=== PATIENT | male | born 1930 | race Two or more races ===

== ENCOUNTER 2018-09-10 13:23 | Inpatient (IN) | payer MEDICARE ==
[~2018-09-10] VITALS: Ht 180.3 cm; Wt 81.6 kg
[2018-09-10] MEDS ORDERED: SODIUM CHLORIDE 0.9% 500ML 500 ML IV ONE (14:30)
--- NOTE | 2018-09-10 14:31 | NUR ---
Pt placed on a waffle on arrival to room.
[2018-09-10 15:15] LABS: BASOPHILS % 0.1 % (0.0-1.0); EOSINOPHILS % 0.1 % (0.0-6.0); HEMATOCRIT 35.4 % (38.2-49.6); HEMOGLOBIN 10.6 g/dL (14.0-18.0); LYMPHOCYTES # (AUTO) 0.6 (1.0-3.2); LYMPHOCYTES % 3.6 % (18.0-39.1); MEAN CORPUSCULAR HEMOGLOBIN 26.4 pg (28-32); MEAN CORPUSCULAR HGB CONC 29.9 g/dL (31-35); MEAN CORPUSCULAR VOLUME 88.3 fL (81-99); MONOCYTES # (AUTO) 0.6 (0.2-0.8); MONOCYTES % 3.6 % (4.4-11.3); NEUTROPHILS # (AUTO) 14.3 (2.1-6.9); NEUTROPHILS % 92.1 % (38.7-80.0); PLATELET COUNT 217 x10e3/uL (140-360); RED BLOOD COUNT 4.01 x10e6/uL (4.3-5.7); RED CELL DISTRIBUTION WIDTH 17.1 % (11.7-14.4)
[2018-09-10 15:24] LABS: INR 0.92; PROTHROMBIN TIME 12.9 seconds (11.9-14.5)
[2018-09-10 15:25] LABS: PARTIAL THROMBOPLASTIN TIME 33.2 seconds (23.8-35.5)
--- NOTE | 2018-09-10 15:30 | NUR ---
ERICKA FROM THE LAB CALLED TO REPORT LACTIC ACID 23. INFORMED DR. VERA AND BROOKE RN PRIMARY NURSE OF THIS.
[2018-09-10 15:32] LABS: ALBUMIN 2.9 g/dL (3.5-5.0); ALBUMIN/GLOBULIN RATIO 0.9 (0.8-2.0); CALCIUM 10.2 mg/dL (8.4-10.2); CREATININE, SERUM 1.91 mg/dL (0.72-1.25)
[2018-09-10 15:38] LABS: CREATINE KINASE MB 1.5 ng/mL (0-5.0)
--- NOTE | 2018-09-10 15:53 | Diagnostic Imaging Report ---
CT BRAIN WO HISTORY: Fall COMPARISON: None. Technique: Noncontrast axial scans were obtained from skull base to the vertex. Coronal and sagittal reconstructions obtained from the axial data. One or more of the following dose reduction techniques were used: Automated exposure control, adjustment of the mA and/or kV according to patient size, and/or utilization of iterative reconstruction technique. DISCUSSION: Scalp/Skull: Unremarkable. Brain sulci: Prominent Ventricles: Compensatory dilatation. Extra-axial spaces: No masses or fluid collections. Carotid siphon and vertebral artery calcifications are present. Parenchyma: Severe bilateral deep white matter hypodensity is likely chronic microvascular ischemic change. Otherwise, no masses, hemorrhage, or large vascular territory acute infarct. Dural sinuses: No abnormal densities. Sellar/Suprasellar region: Intact. Skull base: Intact. Incidental findings: Both ocular lenses are thinned. IMPRESSION: 1. No acute intracranial abnormalities. 2. Severe supratentorial chronic microvascular ischemic change. Generalized cerebral volume loss. Signed by: Dr. Marko Saucedo M.D. on 09/10/2018 3:49 PM
--- NOTE | 2018-09-10 15:57 | Diagnostic Imaging Report ---
CT CERVICAL SPINE WO HISTORY: Fall COMPARISON: Concurrent head CT TECHNIQUE: CT of the cervical spine without contrast. Sagittal and coronal reformations were created. One or more of the following dose reduction techniques were used: Automated exposure control, adjustment of the mA and/or kV according to patient size, and/or utilization of iterative reconstruction technique. FINDINGS: Bone demineralization limits osseous evaluation. Cervical lordosis is straightened. There is no scoliosis. No definite acute fracture or compression deformity is seen. The craniocervical junction is intact. No gross spinal canal masses are seen. The paravertebral and paraspinal soft tissues are unremarkable. Advanced multilevel spondylotic changes are present. Associated multilevel bilateral facet arthrosis is present. There is grade 1 anterolisthesis of C4 on C5 and C7 on T1. Advanced atlantoaxial arthrosis is present as well. Mild right and moderate left carotid bulb calcification is present. IMPRESSION: 1. No acute osseous abnormalities. 2. Advanced multilevel spondylosis. Signed by: Dr. Marko Saucedo M.D. on 09/10/2018 3:54 PM
--- NOTE | 2018-09-10 16:44 | Diagnostic Imaging Report ---
Bilateral elbow - 3 view(s) each HISTORY: Pain. Fall COMPARISON: None available. FINDINGS: RIGHT: No displaced fracture. The osseous alignment is within normal limits. The joint spaces are well-maintained. The soft tissues appear unremarkable. LEFT: No displaced fracture. The osseous alignment is within normal limits. Severe degenerative changes in the left elbow. The soft tissues appear unremarkable. IMPRESSION: 1. Unremarkable right elbow. 2. Severe degenerative changes in the left elbow. Left radial head is partially obscured secondary to the degenerative changes. Signed by: Dr. Michael Vera M.D. on 09/10/2018 4:40 PM
--- NOTE | 2018-09-10 16:48 | Diagnostic Imaging Report ---
Bilateral wrists - 3 view(s) each HISTORY: Pain. Fall. COMPARISON: None available. FINDINGS: RIGHT: No displaced fracture. The osseous alignment is within normal limits. Severe degenerative changes in the first carpometacarpal joint. Mild degenerative changes in the radial carpal joint. The soft tissues appear unremarkable. Periarticular lucencies especially around the carpal bones and MCP joints. LEFT: No displaced fracture. The osseous alignment is within normal limits. Severe degenerative changes in the first carpometacarpal joint. Mild degenerative changes in the radial carpal joint. The soft tissues appear unremarkable. Periarticular lucencies especially around the carpal bones and MCP joints. IMPRESSION: 1. Severe degenerative changes in the first carpometacarpal joints bilaterally. 2. Periarticular lucency, concerning for inflammatory arthritis such as rheumatoid arthritis. Signed by: Dr. Michael Vera M.D. on 09/10/2018 4:44 PM
[2018-09-10 17:22] LABS: CLARITY,URINE SL CLOUDY (CLEAR); COLOR,URINE YELLOW (YELLOW); KETONES,URINE NEGATIVE (NEGATIVE); LEUKOCYTE ESTERASE ,URINE TRACE (NEGATIVE); NITRITE,URINE NEGATIVE (NEGATIVE); PROTEIN,URINE DIPSTICK NEGATIVE (NEGATIVE); URINE UROBILINOGEN 0.2 mg/dL (0.2 - 1)
[2018-09-10 17:23] LABS: BILIRUBIN,URINE NEGATIVE (NEGATIVE)
[2018-09-10 17:34] LABS: AMORPHOUS SEDIMENT,URINE FEW (FEW); EPITHELIAL CELLS,URINE FEW /LPF; WBC,URINE (MAN) 0-5 /HPF (0-5)
[2018-09-10] MEDS ORDERED: INSULIN REGULAR, HUMAN 100 UNIT/1 ML 3ML VIAL IV ONE (18:45)
--- NOTE | 2018-09-10 19:07 | Diagnostic Imaging Report ---
Examination: Single AP view of the chest. COMPARISON: None. INDICATION: Status post fall IMPRESSION: 1. Lines and Tubes: None 2. Lungs are well-inflated. Ill-defined air space opacity in the right upper lung, which may represent contusion in the setting of trauma, or aspiration, however, a pulmonary mass and associated atelectasis are also considered, given the tracheal deviation towards the right. Contrast-enhanced CT chest is recommended for further evaluation. 3. Cardiac silhouette is unremarkable. Pulmonary vasculature is normal. 4. No acute bony abnormalities. No acute fractures are noted in this limited single view. Signed by: Dr. Kaleb Herrmann M.D. on 09/10/2018 7:04 PM
--- NOTE | 2018-09-10 19:18 | NUR ---
Report and care hand off given to MALIA Tomlin. Walking rounds completed. Pt lying in stretcher on waffle.
--- NOTE | 2018-09-10 19:20 | Diagnostic Imaging Report ---
EXAMINATION: Pelvis and bilateral hips CLINICAL HISTORY:Status post fall COMPARISON: None. DISCUSSION: Decreased demineralization, which limits evaluation of the bony structures. No acute, displaced fractures or dislocations. Mild degenerative changes in bilateral hips and sacral joints. No gross soft tissue abnormalities. No osteolytic lesions. 1.1 cm oval-shaped density projecting in the left iliac bone likely represents a calcified injection granuloma in the gluteal region. Vascular calcifications. Nonaggressive appearing 1.6 cm sclerotic lesion in the proximal left femur likely represents a bone island. IMPRESSION: 1. No acute, displaced fracture or dislocation. Signed by: Dr. Kaleb Herrmann M.D. on 09/10/2018 7:16 PM
--- NOTE | 2018-09-10 19:22 | Diagnostic Imaging Report ---
EXAMINATION: Bilateral shoulder series. CLINICAL HISTORY: Status post fall, shoulder pain, arm pain. COMPARISON: None. . Discussion: Left: The osseous structures are intact without evidence of acute, displaced fracture or dislocation. No aggressive lytic lesions. There is no evidence of a.c. separation. Mild degenerative changes in the acromioclavicular and glenohumeral joints. Mild cystic degenerative changes at the greater tuberosity. The soft tissues are normal. Visualized portions of the left ribs are intact. Right:The osseous structures are intact without evidence of acute, displaced fracture or dislocation. No osteolytic or osteoblastic lesions. There is no evidence of a.c. separation. Mild degenerative changes in the acromion clavicular and glenohumeral joints. The soft tissues are normal. Visualized portions of the right ribs are intact. IMPRESSION: 1. No acute, displaced fracture or dislocation. Signed by: Dr. Kaleb Herrmann M.D. on 09/10/2018 7:19 PM
[2018-09-10] MEDS ORDERED: SODIUM CHLORIDE 0.9% 1000ML 1,000 ML IV ONE ×2 (19:45→22:15)
[2018-09-10] MEDS ORDERED: AZITHROMYCIN 500MG/NS 250 ML 250 ML IV SCH (19:45)
[2018-09-10] MEDS ORDERED: CEFTRIAXONE SOD 1 GM/NS 50 ML 50 ML IV ONE (19:45)
[2018-09-10] MEDS ORDERED: SENNA LAX8.6 MG PO (21:01)
[2018-09-10] MEDS ORDERED: POTASSIUM CHLO10 ME1 PO (21:01)
[2018-09-10] MEDS ORDERED: LEVAQUIN500 MG PO (21:01)
[2018-09-10] MEDS ORDERED: MORPHINE SULFAT30 M2 PO (21:01)
[2018-09-10] MEDS ORDERED: NEXIUM40 MG PO (21:01)
[2018-09-10] MEDS ORDERED: SERTRALINE HCL100 MG PO (21:01)
[2018-09-10] MEDS ORDERED: DEXAMETHASONE4 MG PO (21:01)
[2018-09-10] MEDS ORDERED: FLOMAX0.4 MG PO (21:01)
[2018-09-10] MEDS ORDERED: FUROSEMIDE40 MG PO (21:01)
[2018-09-10] MEDS ORDERED: CLOPIDOGREL75 MG PO (21:01)
[2018-09-10] MEDS ORDERED: ENALAPRIL MALE2.5 MG PO (21:01)
--- NOTE | 2018-09-10 21:44 | Diagnostic Imaging Report ---
EXAM: CT Chest WITHOUT contrast 09/10/2018 7:36 PM INDICATION: Right upper lobe abnormality. COMPARISON: None TECHNIQUE: Chest was scanned utilizing a multidetector helical scanner from the lung apex through the level of the adrenal glands without administration of IV contrast. Absence of intravenous contrast decreases sensitivity for detection of lymphadenopathy and vascular pathology. Coronal and sagittal reformations were obtained. Routine protocol was performed. IV CONTRAST: None RADIATION DOSE: Total DLP: 587.62 mGy*cm Estimated effective dose: (DLP x 0.014 x size factor) mSv COMPLICATIONS: None FINDINGS: LINES/ TUBES: None. LUNGS AND AIRWAYS: Large consolidation/mass in the right upper lobe with central fluid attenuation, likely necrosis. It measures approximately 6.3 x 5.6 cm on coronal image 54. Diffuse coarsening of the pulmonary interstitium. PLEURA: The pleural spaces are clear. HEART AND MEDIASTINUM: The thyroid gland is normal. The heart is normal in size.. There are multiple significantly enlarged lymph nodes in the right mediastinum, the largest lymph node mass estimated at 3.8 x 4.4 cm on coronal image 54 mild coronary artery calcifications.. There is no pericardial effusion. UPPER ABDOMEN: Limited non-contrast views of the upper abdomen show status post cholecystectomy. Mild common bile duct dilatation.. The adrenal glands are normal. 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 4.4 x 4.1 cm cyst exophytic of the lateral upper pole of the left kidney, partially visualized. BONES: There are degenerative changes in the thoracic spine. Remote left-sided rib fractures. SOFT TISSUES: Battery pack in the soft tissues of the posterior left back. IMPRESSION: 1. Large consolidation/mass with central necrosis in the right upper lobe measuring up to 6.3 cm in maximal dimension, associated with extensive right sided lymphadenopathy concerning for malignant neoplasm. Recommend pulmonary consultation. Signed by: Dr. Marie Scott M.D. on 09/10/2018 9:40 PM
[2018-09-10] MEDS ORDERED: ONDANSETRON HCL INJ 2MG/ML 2ML 2 MG/ML VIAL IV PRN (22:30)
[2018-09-10] MEDS ORDERED: ACETAMINOPHEN 1000 MG/100 ML IV PRN (22:30)
[2018-09-10] MEDS: ALBUTEROL SULF 0.083% NEB SOLN 3 ML NEB NEB SCH ×2 (22:30→23:00)
[2018-09-10] MEDS: MORPHINE SULFATE 30 MG TAB ER PO SCH (23:31)
--- OUTSIDE RECORDS SUMMARY | 2018-09-10 23:34 | XMS REPORT ---
Author Author [facility] Address Unknown Phone Unavailable Care Team Providers Care Agile Java Developer Name Role Phone Margi VERA Unavailable Unavailable Problems This patient has no known problems. Allergies, Adverse Reactions, Alerts This patient has no known allergies or adverse reactions. Medications This patient has no known medications. Results Test Description Test Time Test Comments Text Results Atomic Results Result Comments CT CHEST WO 2018-09-10 21:26:00 [place] [address] Patient Name: MANUEL GOODSON MR #: [id number] : 1930 Age/Sex: 88/M Req #: [id number] Adm Physician: Ordered by: ANGELIC SAMUEL MD Report #: [id number] Location: ER Room/Bed: Procedure: [id number] CT/CT CHEST WO Exam Date: 09/10/18 Exam Time: 2046 REPORT STATUS: Signed EXAM: CT Chest WITHOUT contrast 09/10/2018 7:36 PM INDICATION: Right upper lobe abnormality. COMPARISON: None TECHNIQUE: Chest was scanned utilizing a multidetector helical scanner from the lung apex through the level of the adrenal glands without administration of IV contrast. Absence of intravenous contrast decreases sensitivity for detection of lymphadenopathy and vascular pathology. Coronal and sagittal reformations were obtained. Routine protocol was performed. IV CONTRAST: None RADIATION DOSE: Total DLP: 587.62 mGy*cm Estimated effective dose: (DLP x 0.014 x size factor) mSv COMPLICATIONS: None FINDINGS: LINES/ TUBES: None. LUNGS AND AIRWAYS: Large consolidation/mass in the right upper lobe with central fluid attenuation, likely necrosis. It measures approximately 6.3 x 5.6 cm on coronal image 54. Diffuse coarsening of the pulmonary interstitium. PLEURA: The pleural spaces are clear. HEART AND MEDIASTINUM: The thyroid gland is normal. The heart is normal in size.. There are multiple significantly enlarged lymph nodes in the right mediastinum, the largest lymph node mass estimated at 3.8 x 4.4 cm on coronal image 54 mild coronary artery calcifications.. There is no pericardial effusion. UPPER ABDOMEN: Limited non-contrast views of the upper abdomen show status post cholecystectomy. Mild common bile duct dilatation.. The adrenal glands are normal. 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 4.4 x 4.1 cm cyst exophytic of the lateral upper pole of the left kidney, partially visualized. BONES: There are degenerative changes in the thoracic spine. Remote left-sided rib fractures. SOFT TISSUES: Battery pack in the soft tissues of the posterior left back. IMPRESSION: 1. Large consolidation/mass with central necrosis in the right upper lobe measuring up to 6.3 cm in maximal dimension, associated with extensive right sided lymphadenopathy concerning for malignant neoplasm. Recommend pulmonary consultation. Signed by: Dr. Marie Caban M.D. on 09/10/2018 9:40 PM Dictated By: JESUS CABAN MD, MD 39 Transcribed By: NOAH on 09/10/182139 COPY TO: ANGELIC SAMUEL MD [facility] BILATERAL 2018-09-10 19:17:00 [place] [address] Patient Name: MANUEL GOODSON MR #: [id number] : 1930 Age/Sex: 88/M Req #: [id number] Adm Physician: Ordered by: JORDYN CASTILLO FLUMER Report #: [id number] Location: Room/Bed: Procedure: [id number] DX/HUMERUS BILATERAL Exam Date: 09/10/18 Exam Time: 1500 REPORT STATUS: Signed EXAMINATION: Bilateral shoulder series. CLINICAL HISTORY: Status post fall, shoulder pain, arm pain. COMPARISON: None. . Discussion: Left: The osseous structures are intact without evidence of acute, displaced fracture or dislocation. No aggressive lytic lesions. There is no evidence of a.c. separation. Mild degenerative changes in the acromioclavicular and glenohumeral joints. Mild cystic degenerative changes at the greater tuberosity. The soft tissues are normal. Visualized portions of the left ribs are intact. Right:The osseous structures are intact without evidence of acute, displaced fracture or dislocation. No osteolytic or osteoblastic lesions. There is no evidence of a.c. separation. Mild degenerative changes in the acromion clavicular and glenohumeral joints. The soft tissues are normal. Visualized portions of the right ribs are intact. IMPRESSION: 1. No acute, displaced fracture or dislocation. Signed by: Dr. Darwin Herrmann M.D. on 09/10/2018 7:19 PM Dictated By: DARWIN HERRMANN MD 18 Transcribed By: NOAH on 09/10/181918 COPY TO: JORDYN CASTILLO FLUMER HIPS BILAT 3-4VWS (+/- PELVIS) 2018-09-10 19:04:00 [place] [address] Patient Name: MANUEL GOODSON MR #: [id number] : 1930 Age/Sex: 88/M Req #: [id number] Adm Physician: Ordered by: JORDYN CASTILLO FLUMER Report #: [id number] Location: ER Room/Bed: Procedure: [id number] DX/HIPS BILAT 3-4VWS (+/- PELVIS) Exam Date: Exam Time: REPORT STATUS: Signed EXAMINATION: Pelvis and bilateral hips CLINICAL HISTORY:Status post fall COMPARISON: None. DISCUSSION: Decreased demineralization, which limits evaluation of the bony structures. No acute, displaced fractures or dislocations. Mild degenerative changes in bilateral hips and sacral joints. No gross soft tissue abnormalities. No osteolytic lesions. 1.1 cm oval-shaped density projecting in the left iliac bone likely represents a calcified injection granuloma in the gluteal region. Vascular calcifications. Nonaggressive appearing 1.6 cm sclerotic lesion in the proximal left femur likely represents a bone island. IMPRESSION: 1. No acute, displaced fracture or dislocation. Signed by: Dr. Darwin Herrmann M.D. on 09/10/2018 7:16 PM Dictated By: DARWIN HERRMANN MD 15 Transcribed By: NOAH on 09/10/181915 COPY TO: JORDYN CASTILLO FLUMER CHEST SINGLE (NOT PORTABLE) 2018-09-10 18:59:00 [place] [address] Patient Name: MANUEL GOODSON MR #: [id number] : 1930 Age/Sex: 88/M Req #: [id number] Adm Physician: Ordered by: JORDYN CASTILLO FLUMER Report #: [id number] Location: ER Room/Bed: Procedure: [id number] DX/CHEST SINGLE (NOT PORTABLE) Exam Date: 09/10/18 Exam Time: 1500 REPORT STATUS: Signed Examination: Single AP view of the chest. COMPARISON: None. INDICATION: Status post fall IMPRESSION: 1. Lines and Tubes: None 2. Lungs are well-inflated. Ill-defined air space opacity in the right upper lung, which may represent contusion in the setting of trauma, or aspiration, however, a pulmonary mass and associated atelectasis are also considered, given the tracheal deviation towards the right. Contrast- enhanced CT chest is recommended for further evaluation. 3. Cardiac silhouette is unremarkable. Pulmonary vasculature is normal. 4. No acute bony abnormalities. No acute fractures are noted in this limited single view. Signed by: Dr. Darwin Herrmann M.D. on 09/10/2018 7:04 PM Dictated By: DARWIN HERRMANN MD 03 Transcribed By: NOAH on 09/10/181903 COPY TO: JORDYN CASTILLO FLUMER WRIST COMPLETE BILATERAL 2018-09-10 16:40:00 [place] [address] Patient Name: MANUEL GOODSON MR #: [id number] : 1930 Age/Sex: 88/M Req #: [id number] Adm Physician: Ordered by: JORDYN CASTILLO FLUMER Report #: [id number] Location: ER Room/Bed: Procedure: [id number] DX/WRIST COMPLETE BILATERAL Exam Date: 09/10/18 Exam Time: 1500 REPORT STATUS: Signed Bilateral wrists - 3 view(s) each HISTORY: Pain. Fall. COMPARISON: None available. FINDINGS: RIGHT: No displaced fracture. The osseous alignment is within normal limits. Severe degenerative changes in the first carpometacarpal joint. Mild degenerative changes in the radial carpal joint. The soft tissues appear unremarkable. Periarticular lucencies especially around the carpal bones and MCP joints. LEFT: No displaced fracture. The osseous alignment is within normal limits. Severe degenerative changes in the first carpometacarpal joint. Mild degenerative changes in the radial carpal joint. The soft tissues appear unremarkable. Periarticular lucencies especially around the carpal bones and MCP joints. IMPRESSION: 1. Severe degenerative changes in the first carpometacarpal joints bilaterally. 2. Periarticular lucency, concerning for inflammatory arthritis such as rheumatoid arthritis. Signed by: Dr. Donato Nichole M.D. on 09/10/2018 4:44 PM Dictated By: DONATO NICHOLE MD 43 Transcribed By: NOAH on 09/10/181643 COPY TO: JORDYN CASTILLO NP ELBOW THREE VIEWS BILATERAL 2018-09-10 16:26:00 [place] [address] Patient Name: MANUEL GOODSON MR #: [id number] : 1930 Age/Sex: 88/M Req #: [id number] Adm Physician: Ordered by: JORDYN CASTILLO NP Report #: [id number] Location: ER Room/Bed: Procedure: [id number] DX/ELBOW THREE VIEWS BILATERAL Exam Date: 09/10/18 Exam Time: 1500 REPORT STATUS: Signed Bilateral elbow - 3 view(s) each HISTORY: Pain. Fall COMPARISON: None available. FINDINGS: RIGHT: No displaced fracture. The osseous alignment is within normal limits. The joint spaces are well-maintained. The soft tissues appear unremarkable. LEFT: No displaced fracture. The osseous alignment is within normal limits. Severe degenerative changes in the left elbow. The soft tissues appear unremarkable. IMPRESSION: 1. Unremarkable right elbow. 2. Severe degenerative changes in the left elbow. Left radial head is partially obscured secondary to the degenerative changes. Signed by: Dr. Donato Nichole M.D. on 09/10/2018 4:40 PM Dictated By: DONATO NICHOLE MD 1640 Transcribed By: NOAH on 09/10/18 1640 COPY TO: JORDYN CASTILLO NP CT CERVICAL SPINE WO 2018-09-10 15:50:00 [place] [address] Patient Name: MANUEL GOODSON MR #: [id number] : 1930 Age/Sex: 88/M Req #: [id number] Adm Physician: Ordered by: JORDYN CASTILLO FLUMER Report #: [id number] Location: ER Room/Bed: Procedure: [id number] CT/CT CERVICAL SPINE WO Exam Date: Exam Time: REPORT STATUS: Signed CT CERVICAL SPINE WO HISTORY: Fall COMPARISON: Concurrent head CT TECHNIQUE: CT of the cervical spine without contrast. Sagittal and coronal reformations were created. One or more of the following dose reduction techniques were used: Automated exposure control, adjustment of the mA and/or kV according to patient size, and/or utilization of iterative reconstruction technique. FINDINGS: Bone demineralization limits osseous evaluation. Cervical lordosis is straightened. There is no scoliosis. No definite acute fracture or compression deformity is seen. The craniocervical junction is intact. No gross spinal canal masses are seen. The paravertebral and paraspinal soft tissues are unremarkable. Advanced multilevel spondylotic changes are present. Associated multilevel bilateral facet arthrosis is present. There is grade 1 anterolisthesis of C4 on C5 and C7 on T1. Advanced atlantoaxial arthrosis is present as well. Mild right and moderate left carotid bulb calcification is present. IMPRESSION: 1. No acute osseous abnormalities. 2. Advanced multilevel spondylosis. Signed by: Dr. Marko Saucedo M.D. on 09/10/2018 3:54 PM Dictated By: MARKO SAUCEDO MD 1557 Transcribed By: NOAH on 09/10/18 7756 COPY TO: JORDYN CASTILLO NP CT BRAIN WO 2018-09-10 15:47:00 [place] [address] Patient Name: MANUEL GOODSON MR #: [id number] : 1930 Age/Sex: 88/M Req #: [id number] Adm Physician: Ordered by: JORDYN CASTILLO FLUMER Report #: [id number] Location: ER Room/Bed: Procedure: [id number] CT/CT BRAIN WO Exam Date: Exam Time: REPORT STATUS: Signed CT BRAIN WO HISTORY: Fall COMPARISON: None. Technique: Noncontrast axial scans were obtained from skull base to the vertex. Coronal and sagittal reconstructions obtained from the axial data. One or more of the following dose reduction techniques were used: Automated exposure control, adjustment of the mA and/or kV according to patient size, and/or utilization of iterative reconstruction technique. DISCUSSION: Scalp/Skull: Unrema rkable. Brain sulci: Prominent Ventricles: Compensatory dilatation. Extra- axial spaces: No masses or fluid collections. Carotid siphon and vertebral artery calcifications are present. Parenchyma: Severe bilateral deep white matter hypodensity is likely chronic microvascular ischemic change. Otherwise, no masses, hemorrhage, or large vascular territory acute infarct. Dural sinuses: No abnormal densities. Sellar/Suprasellar region: Intact. Skull base: Intact. Incidental findings: Both ocular lenses are thinned. IMPRESSION: 1. No acute intracranial abnormalities. 2. Severe supratentorial chronic microvascular ischemic change. Generalized cerebral volume loss. Signed by: Dr. Marko Sauceod M.D. on 09/10/2018 3:49 PM Dictated By: MARKO SAUCEDO MD 1549 Transcribed By: NOAH on 09/10/18 1541 COPY TO: JORDYN CASTILLO NP
[2018-09-10] MEDS: VANCOMYCIN 500MG/NS 0.9% 100ML 100 ML IV SCH (23:35)
[2018-09-11] MEDS: SODIUM CHLORIDE 0.9% 1000ML 1,000 ML IV SCH ×3 (00:05→08:51)
[2018-09-11] MEDS: ALBUTEROL SULF 0.083% NEB SOLN 3 ML NEB NEB SCH ×7 (02:57→23:00)
[2018-09-11 05:20] LABS: BASOPHILS % 0.2 % (0.0-1.0); EOSINOPHILS # (AUTO) 0.2 (0.0-0.4); EOSINOPHILS % 1.2 % (0.0-6.0); HEMATOCRIT 33.2 % (38.2-49.6); HEMOGLOBIN 9.7 g/dL (14.0-18.0); LYMPHOCYTES # (AUTO) 1.6 (1.0-3.2); LYMPHOCYTES % 10.4 % (18.0-39.1); MEAN CORPUSCULAR HEMOGLOBIN 26.1 pg (28-32); MEAN CORPUSCULAR HGB CONC 29.2 g/dL (31-35); MEAN CORPUSCULAR VOLUME 89.2 fL (81-99); MONOCYTES # (AUTO) 0.7 (0.2-0.8); MONOCYTES % 4.7 % (4.4-11.3); NEUTROPHILS # (AUTO) 12.6 (2.1-6.9); NEUTROPHILS % 82.9 % (38.7-80.0); PLATELET COUNT 215 x10e3/uL (140-360); RED BLOOD COUNT 3.72 x10e6/uL (4.3-5.7); RED CELL DISTRIBUTION WIDTH 17.2 % (11.7-14.4)
[2018-09-11 05:39] LABS: ALBUMIN 2.6 g/dL (3.5-5.0); ALBUMIN/GLOBULIN RATIO 0.8 (0.8-2.0); ANION GAP 14.7 mmol/L (8-16); CREATININE, SERUM 1.36 mg/dL (0.72-1.25); POTASSIUM 3.7 mmol/L (3.5-5.1)
[2018-09-11 06:01] LABS: CALCIUM 8.5 mg/dL (8.4-10.2)
[2018-09-11 06:38] LABS: CREATINE KINASE MB 1.3 ng/mL (0-5.0)
[2018-09-11] MEDS: IPRATROPIUM BROMIDE 0.02% 2.5 ML NEB NEB SCH ×5 (07:00→20:30)
--- NOTE | 2018-09-11 07:10 | NUR ---
walking rounds with erin martinez
--- NOTE | 2018-09-11 08:30 | NUR ---
Patient did not want to eat breakfast at this time.
[2018-09-11] MEDS: POTASSIUM CHLORIDE 10MEQ EA PO SCH (08:49)
[2018-09-11] MEDS: FUROSEMIDE 40 MG TAB PO SCH ×2 (08:49→19:18)
[2018-09-11] MEDS: DEXAMETHASONE 4 MG TAB PO SCH (08:49)
[2018-09-11] MEDS: TAMSULOSIN HCL 0.4 MG CAP PO SCH (08:49)
[2018-09-11] MEDS: MORPHINE SULFATE 30 MG TAB ER PO SCH ×2 (08:49→21:49)
[2018-09-11] MEDS: CLOPIDOGREL BISULFATE 75 MG TAB PO SCH (08:49)
[2018-09-11] MEDS: PANTOPRAZOLE SOD 40 MG TABEC PO SCH (08:49)
--- NOTE | 2018-09-11 09:00 | NUR ---
Spoke to DANIEL Clinton and informed patient has cigna. Stated to change attending physician at this time.
--- NOTE | 2018-09-11 09:01 | NUR ---
Dr. 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
--- NOTE | 2018-09-11 09:01 | NUR ---
Attempted to speak to Dr. Dhaliwal at this time with no answer. Awaiting call back.
[2018-09-11] MEDS ORDERED: METOPROLOL TARTRATE 25 MG TAB ONE (09:06)
[2018-09-11] MEDS ORDERED: METOPROLOL TARTRATE 25 MG TAB PO ONE (09:30)
--- NOTE | 2018-09-11 09:30 | NUR ---
Spoke to Dr. Dhaliwal. He was made aware patient has had approx 6-7 runs of SVT and is self converting. New orders obtained. Addendum: 09/11/18 at 1011 by TERRENCE MALIA Fleming spoke to Dr. Dhaliwal.
[2018-09-11] MEDS: VANCOMYCIN 500MG/NS 0.9% 100ML 100 ML IV SCH (09:41)
--- NOTE | 2018-09-11 11:00 | NUR ---
New brief applied. New linens applied as well. Patient repositioned for comfort as well. Walking rounds with Janee Weller RN.
--- NOTE | 2018-09-11 11:15 | NUR ---
WOUND CARE CONSULTATION - INITIAL EVALUATION Patient admitted from [place] to ER for S/P fall and increased confusion. DX: S/p Fall, Lung Ca, PNA, Septic Shock, KERA. LABS: WBC15.35 HGB9.7 HCT33.2 NEUT%82.9 GLU95 ALB2.6 -WC Consulted for Multiple Abrasions from Fall. PATIENT VISIT: -Patient confused in bed in ERHOLD#9. -Scott Score 12 -Incontinent of Bowel - frequent soft stools. -Diapered -No pressure ulcers identified - Presents with skin tear to forehead, left arm x 2 sites. areas with steri strips in place. stable. No redness. no swelling noted. IMPRESSION Forehead - Skin Tear- stable with Steri-Strips Left Forearm - Skin tear- Stable with Steri-Strips in place. RECOMMENDATION: 1. Skin Tear Precautions 2. Shear Friction Precautions. 3. Alternating Pressure Air Mattress. 4. Bilateral Heels - Allevyn Heel Foam Dressings every other day. 5. Ngozi-rectal area - Calazime Cream BID and PRN Soiling. 6. Turn and Reposition every 2 hours. 7. Encourage OOB activity. Addendum: 09/11/18 at 1128 by Omero Portillo RN Amended: Links added.
--- NOTE | 2018-09-11 11:27 | NUR ---
report from MALIA Trejo; patient lying in bed AOx2; patient cleaned of another BM
[2018-09-11] MEDS ORDERED: CEFEPIME 1GM/NS 0.9% 50 ML 50 ML IV SCH (14:00)
[2018-09-11] MEDS ORDERED: SODIUM CHLORIDE 0.45% 1,000 ML IV ONE (14:15)
[2018-09-11 14:23] LABS: CREATINE KINASE MB 1.3 ng/mL (0-5.0)
--- NOTE | 2018-09-11 17:40 | NUR ---
CASE MANAGEMENT INITIAL ASSESSMENT Development Specialist to bedside to discuss plan of care with patient/family. CM/SW role and care transitions discussed. Anticipated discharge plan discussed along with duration of care. CM/SW discussed patients right to make decisions in care. CM/SW work hours given. Patient lives: [facility] Admit/Transfer: ER Hospital/ER visits since last admit:UNKNOWN POA/Emergency contact: NANCY ALANIZ [phone] Current/Previous Home Health: NO PCP/Follow-up Care: UNKNOWN Current/Previous DME: NONE Medications (referring to index hospitalization or the first time you were in the hospital) a. Were changes made in your medications when you were in the hospital on [date of index hospitalization]? Yes No Not sure Explain: Note: If no or not sure, please skip to question d b. Did you understand the changes? Yes No Explain: c. Were you able to obtain your new medications right away? Yes No n/a SNF only Explain: d. Were you able to take your medications like the doctor wanted you to? Yes No Explain: e. Did the hospital give you an accurate, easy to understand list of medications when you left? Yes No n/a SNF only Explain: Scale of 1-10 how comfortable does patient feel with disease management in outpatient setting: Other Services: Employment Status: RETIRED Areas of Concerns: UNKNOWN Referral Needs: UNKNOWN Education Needs: PT CONFUSED; ATTEMPTED TO CALL NEIGHBOR BUT NO ANSWER IMM/MIRANDA given and signed (if applicable): UNABLE TO SIGN Goal for discharge:UNKNOWN CM/SW left business card at the bedside with contact information. Name and number was also written on the patients whiteboard. Patient verbalized understanding of discussion. CM will follow-up with ongoing discharge and transition of care needs.
[2018-09-11] MEDS ORDERED: SODIUM CHLORIDE 0.45% 1,000 ML ONE (19:16)
[2018-09-11 19:36] VITALS: BP 110/81
--- NOTE | 2018-09-11 19:36 | Consultation ---
DATE OF CONSULTATION: 09/11/2018 Cardiology Consultation REASON FOR CONSULTATION: Supraventricular tachycardia. HISTORY OF PRESENT ILLNESS: This is an 88-year-old man with history of hypertension, hyperlipidemia, dementia, and COPD, who was brought to [facility] ER from his skilled nursing after a fall. While undergoing evaluation in the ER, the patient was found to have episodes of supraventricular tachycardia, for which Cardiology is consulted. No history could be obtained from the patient due to his mental status. REVIEW OF SYSTEMS: Unable to obtain. PAST MEDICAL HISTORY: 1. Hypertension. 2. Hyperlipidemia. 3. Dementia. 4. COPD. SOCIAL HISTORY: No tobacco, alcohol, or drugs. FAMILY HISTORY: Noncontributory to current illness. ALLERGIES: NO KNOWN DRUG ALLERGIES. MEDICATIONS: Please see EMR. PHYSICAL EXAMINATION: VITAL SIGNS: Temperature 98.7 degrees, pulse 80, respiratory rate 19, blood pressure 159/59, and oxygen saturation 100%. GENERAL: Well-developed and well-nourished man. HEENT: Normocephalic, atraumatic. NECK: Supple. No thyromegaly or cervical lymphadenopathy. No carotid bruits. LUNGS: Clear to auscultation bilaterally. No wheezes or crackles. CARDIOVASCULAR: Normal rate, regular rhythm. No murmur. Normal S1, S2. ABDOMEN: Soft, nontender. EXTREMITIES: No edema. LABORATORY DATA: WBC 15.25, hemoglobin 9.7, hematocrit 33.2, and platelets 215. Sodium 134, potassium 3.7, chloride 109, CO2 of 29, BUN 41, and creatinine 1.36. Troponin 0.110. CT chest, a large consolidation mass with central necrosis in the right upper lobe measuring up to 6.3 in maximum dimension associated with extensive right-sided lymphadenopathy concerning for malignant neoplasm, recommend Pulmonary consultation. EKG; sinus rhythm with marked sinus arrhythmia, ST and T-wave abnormalities. IMPRESSION: 1. Supraventricular tachycardia. 2. Acute kidney injury, improving. 3. 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 4. Altered mental status. 5. Hypertension. 6. Hyperlipidemia. 7. Chronic obstructive pulmonary disease. RECOMMENDATIONS: 1. Monitor the patient closely on telemetry. Given the patient's comorbid conditions, recommend conservative medical therapy with AV lissy blockade. We will obtain echocardiogram for further evaluation. 2. Antibiotics per primary service, attempt gentle fluids. Thank you for this consult. We will continue to follow. MD MACHO Richmond/SANAZ /[id number]
[2018-09-11 21:47] LABS: CREATINE KINASE MB 1.1 ng/mL (0-5.0)
[2018-09-11] MEDS: SERTRALINE HCL 100 MG TAB PO SCH (22:03)
[2018-09-11] MEDS: METOPROLOL SUCCINATE 25 MG TAB XL PO SCH (22:04)
[2018-09-11 23:04] VITALS: BP 124/52
[2018-09-12] VITALS (13 sets, daily range): BP systolic 92–133; BP diastolic 56–100
[2018-09-12] MEDS: ALBUTEROL SULF 0.083% NEB SOLN 3 ML NEB NEB SCH ×7 (00:30→22:25)
--- NOTE | 2018-09-12 00:50 | NUR ---
Report received from MALIA Tomlin.Patient admitted from ER in unit at 0036 by bed. Patient was confused/moaning and lethargic. 1:1 sitter at the bedside.Patient continued on 2liters oxygen via nasal canula,Spo2 maintained 99%. V/S WNL. Head to assessment completed. Small abrasion on left front head and left elbow noted. Multiple bruises noted on bilateral arms. Bed in lower position,locked. Call conti within reach. Will continued to monitor.
--- NOTE | 2018-09-12 00:55 | NUR ---
IV site infiltrated,assisted to start new IV on left AC 20g with help of MALIA Amin at this time. Will continue to monitor.
[2018-09-12] MEDS ORDERED: VANCOMYCIN 1GM/NS 250 ML 250 ML ONE (01:45)
[2018-09-12] MEDS: VANCOMYCIN 500MG/NS 0.9% 100ML 100 ML IV SCH ×3 (01:50→23:59)
--- NOTE | 2018-09-12 01:50 | NUR ---
IV vancomycin 5oomg/100ml out in all unit. Started 1gm/250ml vancomycin,going to give 500mg/125ml.Witness with MALIA Nascimento at this time. Will continue to monitor.
[2018-09-12] MEDS: IPRATROPIUM BROMIDE 0.02% 2.5 ML NEB NEB SCH ×5 (02:17→22:25)
[2018-09-12] MEDS: CEFEPIME 1GM/NS 0.9% 50 ML 50 ML IV SCH ×3 (03:16→18:33)
--- NOTE | 2018-09-12 04:59 | History and Physical ---
CHIEF COMPLAINT: Falls. HISTORY OF PRESENT ILLNESS: This patient has underlying dementia, unable to obtain full information. information was obtained from the ED nurse and notes. This is an 88-year-old male, known to my service. Of note, he was recently at [facility] for worsening shortness of breath and other comorbidities. He comes in with reports that he had multiple falls. The patient has a known history of lung cancer, currently not on any treatment in which that was the patient's choice as well as the medical power of attorney lawyer's choice. While here, the patient had multiple imaging studies, which were found to be negative. The patient had no evidence of any infection as well. No reports of any chest pain, palpitation, nausea, or vomiting. REVIEW OF SYSTEMS: Pertinent positive for multiple falls. Unable to obtain a 14-point review of systems as the patient has baseline dementia. ALLERGIES: NO KNOWN DRUG ALLERGIES. HOME MEDICATIONS: See med reconciliation form. PAST MEDICAL HISTORY: Hypertension, hyperlipidemia, dementia, COPD, lung cancer, not on any treatment. SOCIAL HISTORY: No tobacco, alcohol, or drugs. FAMILY HISTORY: Hypertension and diabetes. PAST SURGICAL HISTORY: None. LAB FINDINGS: Show white count 15, hemoglobin 9.7, hematocrit 33, and platelets of 250. Coagulation, PT 12, INR 0.92, PTT 33. Chemistry, sodium , potassium 3.7, chloride 109, bicarb 29, anion gap of 14, BUN 41, creatinine 1.36, glucose is 95. LFTs are normal. Troponins were all negative. Urinalysis is concerning for UTI. MICROBIOLOGY: Blood and urine cultures collected. IMAGING STUDIES: Chest x-ray was negative for any type of acute findings. He does have opacity in the right upper lobe. This is from a prior lung cancer that he was diagnosed with. Cervical CT shows no acute findings. CT brain also shows no acute findings. Wrist x-ray shows no evidence of any fracture. Femur x-ray again shows no evidence of any fracture. Hip x-ray shows no evidence of any fracture. Chest CT shows a large consolidation mass with central necrosis in the upper lobe measuring 6.3 cm in size. This is from his prior lung cancer that he is currently not on any treatment. PHYSICAL EXAMINATION: VITAL SIGNS: Temperature is 97.8, pulse 79, respiratory rate is 18, blood pressure 107/71, and pulse ox 99% on room air. GENERAL: In no distress. Alert and oriented x1. HEENT: Head is normocephalic, atraumatic. Eyes, pupils are equal, round and reactive to light bilaterally. Extraocular movements are intact bilaterally. Throat, no evidence of erythema or exudate in the posterior pharynx. Has poor dentition NECK: Supple. Good range of motion throughout. PULMONARY: Clear to auscultation bilaterally. No wheezing. No rales. No rhonchi. No crackles appreciated. CARDIOVASCULAR: Positive S1, S2. No murmur, rub, or gallop appreciated. ABDOMEN: Soft, nondistended, nontender to palpation. Bowel sounds present. MUSCULOSKELETAL: Strength is 5/5 throughout. No evidence of any muscle deficits on examination. No weakness appreciated. NEUROLOGIC: Cranial nerves II through XII are grossly intact. No evidence of any neurological deficits on exam. SKIN: Intact. Warm to touch. Good cap refill. PSYCHIATRIC: At baseline. EXTREMITIES: No edema. Good range of motion throughout. IMPRESSION: 1. Metabolic encephalopathy, likely at his baseline and could be secondary to underlying urinary tract infection. 2. Aspiration pneumonia. 3. History of lung cancer, not on any treatment. 4. Hypertension. 5. Hyperlipidemia. 6. Chronic obstructive pulmonary disease. PLAN: At this time, continue IV antibiotics with cefepime and IV vancomycin. His white count is improving. He did have SVT, for which Cardiology was consulted. We will get a.m. labs. Resume same home medications. The patient is currently at his baseline, I remember him from the past. I will continue with same plan of care with no changes. We will restart his Plavix and Lasix and his as well as tamsulosin. Currently, he is on antibiotics. We will monitor closely. MD ELIEZER Lincoln/LIZL /[id number]
--- NOTE | 2018-09-12 07:10 | NUR ---
Report given to oncoming RN,walking round done.
--- NOTE | 2018-09-12 07:27 | NUR ---
pt resting in bed, speaks minimal colombian and apparently Welsh. has sitter to bedside. vs stable. noted bruising to extremities. asking for "taxi to take me home". will continue to monitor.
[2018-09-12] MEDS: TAMSULOSIN HCL 0.4 MG CAP PO SCH (08:18)
[2018-09-12] MEDS: DEXAMETHASONE 4 MG TAB PO SCH (08:18)
[2018-09-12] MEDS: POTASSIUM CHLORIDE 10MEQ EA PO SCH (08:18)
[2018-09-12] MEDS: METOPROLOL SUCCINATE 25 MG TAB XL PO SCH ×2 (08:19→21:00)
[2018-09-12] MEDS: FUROSEMIDE 40 MG TAB PO SCH ×3 (08:19→18:34)
[2018-09-12] MEDS: PANTOPRAZOLE SOD 40 MG TABEC PO SCH (08:19)
[2018-09-12] MEDS: CLOPIDOGREL BISULFATE 75 MG TAB PO SCH (08:19)
[2018-09-12] MEDS: MORPHINE SULFATE 30 MG TAB ER PO SCH ×2 (08:19→21:54)
[2018-09-12 08:45] LABS: BASOPHILS % 0.1 % (0.0-1.0); EOSINOPHILS # (AUTO) 0.1 (0.0-0.4); EOSINOPHILS % 0.7 % (0.0-6.0); HEMATOCRIT 29.8 % (38.2-49.6); LYMPHOCYTES # (AUTO) 0.9 (1.0-3.2); LYMPHOCYTES % 6.5 % (18.0-39.1); MEAN CORPUSCULAR HEMOGLOBIN 26.3 pg (28-32); MEAN CORPUSCULAR HGB CONC 30.2 g/dL (31-35); MEAN CORPUSCULAR VOLUME 87.1 fL (81-99); MONOCYTES # (AUTO) 0.7 (0.2-0.8); MONOCYTES % 5.6 % (4.4-11.3); NEUTROPHILS # (AUTO) 11.5 (2.1-6.9); NEUTROPHILS % 86.4 % (38.7-80.0); PLATELET COUNT 186 x10e3/uL (140-360); RED BLOOD COUNT 3.42 x10e6/uL (4.3-5.7); RED CELL DISTRIBUTION WIDTH 17.1 % (11.7-14.4)
[2018-09-12 09:10] LABS: CALCIUM 8.2 mg/dL (8.4-10.2); CREATININE, SERUM 1.14 mg/dL (0.72-1.25)
--- NOTE | 2018-09-12 09:17 | NUR ---
reported K level 3.0 to Pedro SANCHEZ, orders to get [facility]
--- NOTE | 2018-09-12 10:40 | NUR ---
Mary Beth SANCHEZ on unit, pt was to be trans to Dr Dhaliwal. updated orders. paged for K labs/orders
--- NOTE | 2018-09-12 13:20 | Progress Note ---
DATE: 09/12/2018 Cardiology Progress Note SUBJECTIVE: The patient denies chest pain or shortness of breath. He is more alert today. OBJECTIVE: VITAL SIGNS: Temperature 99 degrees, pulse 92, respiratory rate 20, blood pressure 101/96, and oxygen saturation 98% on room air. GENERAL: Awake, alert, in no acute distress. LUNGS: Clear to auscultation bilaterally. No wheezes or crackles. CARDIOVASCULAR: Normal rate. Regular rhythm. No murmur. Normal S1 and S2. ABDOMEN: Soft, nontender. EXTREMITIES: No edema. CARDIAC MEDICATIONS: Metoprolol succinate 25 mg p.o. q.12 hours, furosemide 40 mg p.o. b.i.d., and Plavix 75 mg p.o. daily. LABS: WBC 13.24, hemoglobin 9, hematocrit 29.8, and platelets 186. Sodium 141, potassium 3, chloride 103, CO2 of 30, BUN 21, and creatinine 1.14. Troponin 0.09. IMPRESSION: 1. Supraventricular tachycardia. 2. Acute kidney injury, improved. 3. 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 4. Altered mental status. 5. Hypertension. 6. Hyperlipidemia. 7. Chronic obstructive pulmonary disease. RECOMMENDATIONS: Maintain the patient on telemetry. Continue metoprolol succinate. Echocardiogram has been done, we will review the images. Antibiotics per primary service. Continue current cardiac medications otherwise. Thank you for this consult. We will continue to follow. Renate Nicolas MD ABS/MODL /[id number]
--- NOTE | 2018-09-12 15:22 | NUR ---
attempted translation with translation line and patient with [facility] present, pt would not respond to interpreters prompts. just grunted and went back to sleep. will try again when more alert. this morning pt was more verbal and yelling in mixed minimal mohawk and apparent tajik. will continue to monitor.
[2018-09-12] MEDS: POTASSIUM CHLORIDE 20 MEQ TAB CR PO ONE ×2 (16:05→18:33)
--- NOTE | 2018-09-12 17:48 | NUR ---
CM USED TRANSLATION LINE [facility] PHYSIOLOGICAL TECHNICIAN ATTEMPTED TO SPEAK WITH PT PT UNABLE TO ANSWER QUESTIONS UNABLE TO TELL US HIS NAME CM TO FOLLOW
--- NOTE | 2018-09-12 18:22 | Progress Note ---
DATE: 09/12/2018 Medicine Progress Note SUBJECTIVE: The patient is doing well. He is at baseline with no complaints. He was admitted last night due to underlying encephalopathy due to UTI. He also was being treated for aspiration pneumonia. He is currently doing well with no complaints according to the nursing staff. OBJECTIVE: VITAL SIGNS: Temperature 97.5, pulse , respiratory rate 18, blood pressure 107/61, and pulse ox 98% on room air. GENERAL: Not in acute distress. Alert and oriented x1, at baseline. Cooperative on exam. HEENT: Head is normocephalic, atraumatic. Eyes, pupils are equal, round, and reactive to light bilaterally. Extraocular movements are intact bilaterally. Throat, no evidence of erythema or exudates in the posterior pharynx. Has poor dentition. NECK: Supple. Good range of motion. PULMONARY: Clear to auscultation bilaterally. No wheezing, rales, or rhonchi. No crackles appreciated. CARDIOVASCULAR: Positive S1 and S2. No murmurs, rubs, or gallops appreciated. ABDOMEN: Soft, nondistended, and nontender to palpation. Bowel sounds are present. MUSCULOSKELETAL: At baseline. NEUROLOGIC: At baseline. SKIN: Intact. Warm to touch. Good cap refill. PSYCHIATRIC: Normal affect and mood. EXTREMITIES: No edema. Good range of motion throughout. LAB FINDINGS: Show white count of 13.2, hemoglobin 9, hematocrit 29.8, platelets about 186. Chemistry; sodium 141, potassium 3, chloride 103, bicarb 30, anion gap , glucose is 119. Urinalysis consistent with UTI. MICROBIOLOGY: Urine cultures so far, no growth to date. Blood cultures, no growth to date. IMAGING STUDIES: Nothing new. IMPRESSION: 1. Metabolic encephalopathy, likely multifactorial from underlying dementia and urinary tract infection as well as aspiration pneumonia. 2. Aspiration pneumonia. 3. History of lung cancer, not on treatment. 4. Hypertension. 5. Hyperlipidemia. 6. Chronic obstructive pulmonary disease. PLAN: At this time, continue with IV antibiotics. All cultures so far have been found to be negative. Continue with cefepime and vancomycin. He did have SVT on admission for which Cardiology was consulted and metoprolol was adjusted accordingly. His white count is still elevated, which we are going to monitor very closely. Hopefully, by tomorrow his white count will be improved. We are going to go ahead and move him out of the ICU to the regular medical floor. In relation to his lung mass , this has been known even at other facility, which at that time they did not want to do any further workup and this was also noted at [facility]. At this time, we will continue with same plan of care and monitor him very closely. Hopefully, in the next 1 to 2 or more days, if all cultures are back, we can send him back to the [facility]. MD ELIEZER Lincoln/MODL /[id number]
--- NOTE | 2018-09-12 18:35 | NUR ---
pt slept majority of afternoon, refusing meds. now refusing dinner. mostly responding with grunting or 'leave alone'. attempted to give PO K and lasix several times with no success. paged MD to update and possibly give K via IV. pending callback
[2018-09-12] MEDS ORDERED: POTASSIUM CHLORIDE 20MEQ/100ML 200 ML IV ONE (19:00)
--- NOTE | 2018-09-12 19:10 | NUR ---
Patient resting on his bed with alert/oriented 1-2, still confused and agitated noted. Sitter 1:1 at the bedside. Bed in lower position,locked. Will continue to monitor.
[2018-09-12] MEDS ORDERED: SODIUM CHLORIDE 0.9% 250ML 250 ML ONE (19:29)
[2018-09-12] MEDS: QUETIAPINE FUMARATE 25 MG TAB PO PRN (21:45)
[2018-09-12] MEDS: SERTRALINE HCL 100 MG TAB PO SCH (21:54)
[2018-09-13] MEDS: ALBUTEROL SULF 0.083% NEB SOLN 3 ML NEB NEB SCH ×4 (03:00→15:44)
[2018-09-13] MEDS: CEFEPIME 1GM/NS 0.9% 50 ML 50 ML IV SCH ×2 (03:15→12:43)
[2018-09-13] MEDS: IPRATROPIUM BROMIDE 0.02% 2.5 ML NEB NEB SCH ×3 (03:53→15:44)
[2018-09-13 04:38] VITALS: BP 116/70
--- NOTE | 2018-09-13 05:34 | NUR ---
Patient assisted to given total bed bath at this time.
--- NOTE | 2018-09-13 07:04 | NUR ---
Report given to oncoming nurse,walking round done.
[2018-09-13 08:08] VITALS: BP 141/81
[2018-09-13 08:09] VITALS: BP 141/81
[2018-09-13] MEDS: MORPHINE SULFATE 30 MG TAB ER PO SCH ×2 (08:22→20:29)
[2018-09-13] MEDS: DEXAMETHASONE 4 MG TAB PO SCH (08:22)
[2018-09-13] MEDS: PANTOPRAZOLE SOD 40 MG TABEC PO SCH (08:22)
[2018-09-13] MEDS: METOPROLOL SUCCINATE 25 MG TAB XL PO SCH ×2 (08:22→20:30)
[2018-09-13] MEDS: TAMSULOSIN HCL 0.4 MG CAP PO SCH (08:22)
[2018-09-13] MEDS: POTASSIUM CHLORIDE 10MEQ EA PO SCH (08:22)
[2018-09-13] MEDS: CLOPIDOGREL BISULFATE 75 MG TAB PO SCH (08:22)
--- NOTE | 2018-09-13 08:31 | NUR ---
pt resting in bed, eating breakfast. obeys commands but non verbal response. cooperative with taking morning meds. sitter at bedside. per report, pt spoke slovak with his family/visitor last night and primary language is Serbian. will continue to monitor.
[2018-09-13 09:52] LABS: BASOPHILS % 0.2 % (0.0-1.0); EOSINOPHILS # (AUTO) 0.3 (0.0-0.4); EOSINOPHILS % 2.5 % (0.0-6.0); HEMATOCRIT 30.4 % (38.2-49.6); HEMOGLOBIN 9.1 g/dL (14.0-18.0); LYMPHOCYTES # (AUTO) 0.9 (1.0-3.2); LYMPHOCYTES % 7.3 % (18.0-39.1); MEAN CORPUSCULAR HEMOGLOBIN 26.1 pg (28-32); MEAN CORPUSCULAR HGB CONC 29.9 g/dL (31-35); MEAN CORPUSCULAR VOLUME 87.1 fL (81-99); MONOCYTES # (AUTO) 0.8 (0.2-0.8); MONOCYTES % 6.4 % (4.4-11.3); NEUTROPHILS # (AUTO) 10.2 (2.1-6.9); NEUTROPHILS % 83.1 % (38.7-80.0); PLATELET COUNT 168 x10e3/uL (140-360); RED BLOOD COUNT 3.49 x10e6/uL (4.3-5.7); RED CELL DISTRIBUTION WIDTH 17.2 % (11.7-14.4)
[2018-09-13 10:14] LABS: ALANINE AMINOTRANSFERASE 7 IU/L (0-55); ALBUMIN 2.4 g/dL (3.5-5.0); ALBUMIN/GLOBULIN RATIO 0.8 (0.8-2.0); ALKALINE PHOSPHATASE 46 IU/L (40-150); ANION GAP 12.2 mmol/L (8-16); BLOOD UREA NITROGEN 17 mg/dL (7-26); BUN/CREATININE RATIO 15 (6-25); CALCIUM 8.3 mg/dL (8.4-10.2); CARBON DIOXIDE 29 mmol/L (22-29); CHLORIDE 102 mmol/L (98-107); CREATININE, SERUM 1.12 mg/dL (0.72-1.25); EST GLOMERULAR FILTRATION RATE > 60 ML/MIN (60-); GLUCOSE 209 mg/dL (74-118); POTASSIUM 3.2 mmol/L (3.5-5.1); SODIUM 140 mmol/L (136-145)
--- NOTE | 2018-09-13 10:33 | NUR ---
notified of labs,
[2018-09-13 12:16] VITALS: BP 98/78
--- NOTE | 2018-09-13 12:39 | Progress Note ---
DATE: 09/13/2018 Cardiology Progress Note SUBJECTIVE: The patient denies chest pain or shortness of breath. Per staff, his mental status waxes and wanes. OBJECTIVE: VITAL SIGNS: Temperature 99 degrees, pulse 85, respiratory rate 18, blood pressure 141/81, and oxygen saturation 100% on 2 L nasal cannula. GENERAL: Elderly man in no acute distress, awake, and alert. LUNGS: Clear to auscultation bilaterally. No wheezes or crackles. CARDIOVASCULAR: Normal rate. Regular rhythm. No murmur. Normal S1, S2. ABDOMEN: Soft, nontender. EXTREMITIES: No edema. CARDIAC MEDICATIONS: Metoprolol succinate 25 mg p.o. q.12 hours, clopidogrel 75 mg p.o. daily, and furosemide 40 mg p.o. b.i.d. LABS: WBC 12.22, hemoglobin 9.1, hematocrit 30.4, and platelets 168. Telemetry, normal sinus rhythm. IMPRESSION: 1. Supraventricular tachycardia. 2. Acute kidney injury, improved. 3. 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 4. Altered mental status. 5. Hypertension. 6. Hyperlipidemia. 7. Chronic obstructive pulmonary disease. RECOMMENDATIONS: Maintain the patient on telemetry. Continue metoprolol succinate. No further episodes of supraventricular tachycardia have been noted. Echocardiogram was a technically difficult study. LV systolic function appeared mildly impaired with EF between 30% and 35%. Monitor volume status closely given his comorbid conditions, medical management for now. Add NEO if renal function remains stable. We will clarify with primary service regarding prognosis of his pulmonary neoplasm. Thank you for this consult. We will continue to follow. Renate Nicolas MD ABS/MODL /[id number]
[2018-09-13] MEDS ORDERED: POTASSIUM CHLORIDE 20 MEQ TAB CR PO NR (12:40)
--- NOTE | 2018-09-13 12:40 | NUR ---
on unit, pt to dc once approval to return to LTC facility. CSM aware.
[2018-09-13] MEDS: VANCOMYCIN 500MG/NS 0.9% 100ML 100 ML IV SCH (12:43)
--- NOTE | 2018-09-13 13:25 | NUR ---
[facility] TO [address]
[2018-09-13] MEDS ORDERED: POTASSIUM CHLORIDE 20 MEQ TAB CR PO SCH (14:30)
[2018-09-13 16:48] VITALS: BP 94/64
--- NOTE | 2018-09-13 17:25 | NUR ---
PT APPROVED TO GO BACK TO [facility] TODAY ROOM [address] DACOSTA RTF INITIATED AND GIVEN TO NURSE SIMMS
--- NOTE | 2018-09-13 17:28 | NUR ---
report called to chase humphrey @[facility]. pt stable and ems being called for transfer
[2018-09-13] MEDS: FUROSEMIDE 40 MG TAB PO SCH (17:39)
[2018-09-13 19:52] VITALS: BP 107/68
[2018-09-13] MEDS: QUETIAPINE FUMARATE 25 MG TAB PO PRN (20:29)
[2018-09-13] MEDS: SERTRALINE HCL 100 MG TAB PO SCH (20:29)
--- NOTE | 2018-09-13 20:37 | NUR ---
Patient D/C from unit at 2033 by EMS with stable condition. V/S WNL. BP:107/68,HR:77,RR:15 and spo2:99 with RA. Medicated patient for his anxiety and regular medicines at this time. Took all pills without issued.
--- NOTE | 2018-09-14 05:04 | Discharge Summary ---
FINAL DISCHARGE DIAGNOSES: 1. Metabolic encephalopathy, multifactorial from underlying , urinary tract infection, and aspiration pneumonia, now at baseline. 2. Aspiration pneumonitis. 3. History of lung cancer, not on treatment. 4. Hypertension. 5. Hyperlipidemia. 6. Chronic obstructive pulmonary disease. 7. Mechanical fall. 8. Supraventricular tachycardia, for which we had Cardiology consulted. CONSULTANTS: Cardiology. PHYSICAL EXAMINATION: VITAL SIGNS: Temperature is 98.6, pulse 98, respirations 18, blood pressure 141/81, and pulse ox 100% on room air. LAB FINDINGS: The white count better at 12, hemoglobin 9.1, hematocrit was 30, platelets of 168. Coagulation stable. Chemistry, sodium 140, potassium 3.2 , chloride 102, bicarb 29, anion gap 12, BUN 17, creatinine is 1.1, glucose was 209, and lactic acid 13, which is normal at this facility. Calcium is 8.3, magnesium is 1.4. LFTs were normal. His troponin was negative x4. Albumin was 2.4. Urinalysis was negative. Urine cultures were negative. Blood cultures were negative. IMAGING STUDIES: Chest x-ray, no acute finding, shows an ill-defined lung mass which . The patient has known about this as well as the medical [id number] in the past, but they do not want any oncology treatment. CT cervical spine, no acute osseous abnormalities. CT brain shows no acute intracranial abnormalities. chronic microvascular ischemic changes. Wrist x-ray shows severe changes in the 1st metacarpal joints. There is no evidence of any acute fractures. x-ray shows no acute fracture or dislocation. Hip x-ray shows no acute fracture or dislocation. Elbow x-ray shows severe degenerative changes in the elbow. Left radial head is partially obscured secondary to degenerative changes, but there is no evidence of any acute fracture. Chest CT shows a large consolidative mass with central necrosis in the right upper lobe measuring 6.3 cm in maximum dimension right-sided lymphadenopathy concerning for . The family power of collections attorney is aware of this and apparently they did not want to pursue any kind of treatment. Even when I saw this patient at [facility] several months back, this was the same presentation, which they refused any treatment due to his overall multiple comorbidities . CLINICAL HOSPITAL COURSE: This is an 88-year-old gentleman, who comes in from a senior care after having a mechanical fall at home. All imaging studies were found to be negative for acute fractures. He does have a known lung mass, was present for significant period of time, which was as well as the patient decided not to pursue any treatment at this time. I also remembered this gentleman even at [facility] and which I discussed this with him as well and at that time, they also did not want any treatment. He came in with underlying metabolic encephalopathy from his baseline secondary to possible UTI and aspiration pneumonia. He is now back to normal baseline, eating, talking with no other complaints. All his cultures were found to be negative. He was on IV antibiotics and will be discharged on oral antibiotics. He also has a history of COPD, which was treated accordingly. His potassium was replaced prior to discharge home. He did have an episode of SVT, which Cardiology was consulted. Started on twice a day with much . The patient is now back to normal baseline. He has been cleared for discharge by Cardiology to the senior care. On the day of discharge, vital signs stable, lab studies stable. The patient seen and evaluated, examined thoroughly on the day of discharge, no other complaints. The patient verbalized understanding and agreed to plan of care. A followup appointment as an outpatient with primary care physician in 1 week and the reliability technologist in 2 weeks' time. MEDICATIONS: See med reconciliation form, including Levaquin and metoprolol . DISPOSITION: To senior care. CONDITION: Stable. DIET: Heart healthy. if any worsening symptoms, the patient advised to come back to the ED for further evaluation. Discharge summary took greater than 35 minutes. MD ELIEZER Lincoln/SANAZ /[id number]
== END 2018-09-13 20:34 | DRG 871 ==
LOC: ER 13:28 → ERHOLD 23:29 → IMCU 09-12 00:28
PROVIDERS: ADMIT Internal Medicine; ATTEND Internal Medicine
DX: A41.9 Sepsis, unspecified organism (principal); J69.0 Pneumonitis due to inhalation of food and vomit; G93.41 Metabolic encephalopathy; N17.9 Acute kidney failure, unspecified; N39.0 Urinary tract infection, site not specified; I47.1 Supraventricular tachycardia; C34.11 Malignant neoplasm of upper lobe, right bronchus or lung; I10 Essential (primary) hypertension; E78.5 Hyperlipidemia, unspecified; J44.9 Chronic obstructive pulmonary disease, unspecified; F03.90 Unspecified dementia, unspecified severity, without behavioral disturbance, psychotic disturbance, mood disturbance, and anxiety; Z79.02 Long term (current) use of antithrombotics/antiplatelets; W19.XXXA Unspecified fall, initial encounter; Y92.129 Unspecified place in nursing home as the place of occurrence of the external cause
CPT/HCPCS: 36415; 70450; 71045; 71250; 72125; 73522; 80048; 80053; 81001; 82550; 82553; 82948; 83605; 83735; 84484; 85025; 85610; 85730; 87040; 87086; 93005; 93306; 94640; 99284; J0456; J0692; J0696; J3370; J3480; J7030; J7040; J7050